=== PATIENT | male | born 1990 | race Caucasian/White ===

== ENCOUNTER 2019-07-08 13:55 | Emergency (ER) | payer OTHER ==
[2019-07-08 14:05] VITALS: BP 151/103
[2019-07-08] MEDS ORDERED: MUPIROCIN 2% OINT 1 GM TOP STA (14:27)
[2019-07-08] MEDS ORDERED: SULFAMETH/TRIMETH DS 800/160 MG TABLET PO STA (14:27)
--- NOTE | 2019-07-08 14:31 | ED Physician Documentation ---
PD HPI SKIN - Stated complaint Stated Complaint: REDNESS/SWELLING RT FOREARM - Chief complaint Chief Complaint: Wound - History obtained from History obtained from: Patient - History of Present Illness Timing - onset: How many days ago (3-4) Timing - duration: Days (3-4) Timing - details: Gradual onset, Still present Location: LUE (He noted a small area of redness and swelling in the volar left forearm. He is not aware of any particular injury. He had had similar lesions in other body areas episodically over the last 4 to 5 months and they commonly go away after a few days with some mild local drainage. He had had one on the left thigh that required oral antibiotics. He has not needed to have any lanced. He wonders whether he gets repeated spider bites or insect bites.) Quality / character: Painful, Discolored (red Developing around the localized lesion since yesterday with a little bit expanding redness today.) Review of Systems Constitutional: denies: Fever, Chills Nose: denies: Rhinorrhea / runny nose, Congestion Throat: denies: Sore throat Respiratory: denies: Cough Neurologic: denies: Focal weakness, Numbness PD PAST MEDICAL HISTORY - Past Medical History Past Medical History: Yes Cardiovascular: Hypertension Other Past Medical History: seasonal allergies - Past Surgical History Past Surgical History: No - Present Medications Home Medications: Ambulatory Orders Medication Instructions Recorded Confirmed Chlorhexidine Gluconate [Hibiclens] 15 ml TP DAILY #236 ml 07/08/19 Lisinopril [Zestril] 5 mg PO 07/08/19 Loratadine [Claritin] 10 mg PO 07/08/19 07/08/19 Mupirocin 1 applic TP TID #15 g 07/08/19 Sulfamethox/Trimeth 800/160 1 each PO BID #14 tablet 07/08/19 [Bactrim Ds 800/160] - Allergies Allergies/Adverse Reactions: Allergies Allergy/AdvReac Type Severity Reaction Status Date / Time No Known Drug Allergies Allergy Verified 07/08/19 14:05 - Social History Does the pt smoke?: No Smoking Status: Never smoker Does the pt drink ETOH?: Yes Does the pt have substance abuse?: No - Immunizations Immunizations are current?: Yes PD ED PE NORMAL - Vitals Vital signs reviewed: Yes - General General: Alert and oriented X 3, No acute distress, Well developed/nourished - Derm Derm: Normal color, Warm and dry, Other (Left forearm has a localized area of small redness and induration about 1 cm diameter. As a faint pustular top. There is no fluctuance. Surrounding it is a 2 to 3 cm area of mild redness and warmth. He has normal sensation movement and strength in the wrist and fingers so no suggestion of deeper muscular involvement.) - Neuro Neuro: Alert and oriented X 3, No motor deficit, No sensory deficit, Normal speech Results - Vitals Vitals: Vital Signs - 24 hr 07/08/19 14:00 Temperature 37.2 C Heart Rate 81 Respiratory 18 Rate Blood Pressure 151/103 H O2 Saturation 97 Oxygen O2 Source Room air PD MEDICAL DECISION MAKING - ED course Complexity details: considered differential (Really infection in the left forearm. No fluctuance felt. It does look likely early staph infection so we will treat it oral and topical antibiotics.), d/w patient Departure - Departure Disposition: 01 Home, Self Care Clinical Impression: Abscess of skin Qualifiers: Site of cutaneous abscess: extremity Site of cutaneous abscess of extremity: upper extremity Laterality: left Qualified Code(s): L02.414 - Cutaneous abscess of left upper limb Condition: Stable Record reviewed to determine appropriate education?: Yes Instructions: ED Staph Infec Abx Tx Only Follow-Up: GIBRAN SWANSON ARNP [Primary Care Provider] - Prescriptions: Chlorhexidine Gluconate [Hibiclens] 15 ml TP DAILY #236 ml Mupirocin 1 applic TP TID #15 g Sulfamethox/Trimeth 800/160 [Bactrim Ds 800/160] 1 each PO BID #14 tablet Comments: Warm moist towels to the area to improve blood flow and help fight the infection. Mupirocin topical antibiotic 2-3 times a day for the next few days until its better. Bactrim oral antibiotic twice daily for 7 days. Recheck if this has not improved and resolved over the next 2 to 3 days. This does seem likely to be a small staph infection. Since you have had a few small of these over the last several months, ou can use chlorhexidine topical antiseptic in your shower daily for the next day or 2 and then weekly after that to try to reduce further occurrences. Discharge Date/Time: 07/08/19 14:39
== END 2019-07-08 14:39 | disposition home or self-care (01) ==
LOC: ED 13:55
DX: L02.414 Cutaneous abscess of left upper limb (principal); I10 Essential (primary) hypertension
CPT/HCPCS: 99283; A9270